=== PATIENT | female | born 1970 | race Caucasian/White ===

== ENCOUNTER 2025-02-24 14:29 | Emergency (ER) | payer OTHER ==
[~2025-02-24] VITALS: Ht 154.9 cm; Wt 72.6 kg
[2025-02-24] MEDS ORDERED: CLONAZEPAM0.5 M2 PO (14:46)
[2025-02-24] MEDS ORDERED: LISINOPRIL10 M1 PO (14:46)
[2025-02-24] MEDS ORDERED: METOPROLOL SUC100 M1 PO (14:47)
[2025-02-24] MEDS ORDERED: OMEPRAZOLE MAGN20 MG PO (14:47)
[2025-02-24] MEDS ORDERED: IBUPROFEN 600 MG TAB PO ONE (16:05)
[2025-02-24] MEDS ORDERED: Cyclobenzaprine Hydrochlorid 10 MG TAB PO ONE (16:05)
[2025-02-24] MEDS ORDERED: Acetaminophen/Oxycodone 5 MG/325 MG TABLET PO ONE (16:05)
[2025-02-24] MEDS ORDERED: HYDROCODONE-AC1 EAC1 PO (17:58)
== END 2025-02-24 18:05 | disposition home or self-care (01) ==
LOC: ED 14:29
DX: S40.021A Contusion of right upper arm, initial encounter (principal); M79.18 Myalgia, other site; F41.9 Anxiety disorder, unspecified; F32.A Depression, unspecified; J44.9 Chronic obstructive pulmonary disease, unspecified; I10 Essential (primary) hypertension; K21.9 Gastro-esophageal reflux disease without esophagitis; W19.XXXA Unspecified fall, initial encounter; Y93.89 Activity, other specified; Y92.89 Other specified places as the place of occurrence of the external cause; Y99.8 Other external cause status